=== PATIENT | male | born 1980 | race Caucasian/White ===

== ENCOUNTER 2016-10-15 19:30 | Emergency (ER) | payer OTHER ==
[2016-10-15 19:58] VITALS: RESP 16
--- NOTE | 2016-10-15 22:06 | UCPHY ---
H & P Time Seen by Provider: 10/15/16 20:41 Patient Type: New HPI/ROS: HPI Left thumb injury. 36-year-old male by private vehicle with his . He is right-hand dominant. He fell awkwardly skiing. He thinks he got his left hand caught in the wrist plan of his ski pole. He complains of isolated pain to the base of his thumb. He did not hit his head. No loss of consciousness. No neck pain. No other complaints. ROS: Constitutional: No fever, no chills. No weakness. Musculoskeletal: No back pain. No neck pain. As above. Skin: No lacerations or abrasions. Neurological: No headache. No focal weakness or altered sensation. Past medical history: No significant past medical history. Social history: Here with his . Nonsmoker. Physical Exam: General Appearance: Alert, no distress. This patient is responding to questions appropriately and in full sentences. This patient appears well- hydrated and well-nourished. Eyes: Pupils equal and round no pallor or injection. No lid edema, erythema or injection. Left hand exam: Significant for pain and swelling isolated to the dorsal radial base of the left thumb. The left hand is otherwise neurovascularly intact. The skin is intact. No lacerations or abrasions. No pain on axial compression of digits 2 through 5. Neurological: Motor sensory function is grossly intact. Cranial nerves are normal. Gait is normal. Skin: Warm and dry, no rashes. No lacerations Musculoskeletal: Neck is supple and nontender. Extremities are symmetrical. All joints range without pain or impingement except noted. Psychiatric: No agitation. No depression. Database: EKG: Imaging: Left thumb x-ray series: Significant for a fracture to the base of the 1st metacarpal. Possible intra-articular involvement. Mild displacement. Interpreted by me. Procedures: Procedure: Splint placement. A ortho glass thumb spica splint was applied left hand and thumb. After application of the splint I returned and re-examined the patient. The splint was adequately immobilizing the joint and distal to the splint the patient's circulation and sensation was intact. Emergency department course: X-rays reviewed with the patient. Diagnosis discussed. Follow-up with orthopedic hand specialist reviewed. Splint placed as above. Patient comfortable in splint. Declines any pain medication other than ibuprofen. Return to Urgent Care/emergency department precautions reviewed. All of his questions were answered. He was discharged from the urgent care in good condition with his who is driving. Differential Diagnosis: The differential diagnosis on this patient includes but is not limited to skin tears thumb/ulnar collateral ligament sprain or tear, 1st metacarpal base fracture. This represents a partial list of diagnoses considered. These considerations are based on history, physical exam, past history, reassessment and diagnostic testing. Smoking Status: Never smoked Constitutional: Initial Vital Signs Temperature (C) 36.8 C 10/15/16 19:54 Heart Rate 85 10/15/16 19:54 Respiratory Rate 16 10/15/16 19:54 Blood Pressure 154/95 H 10/15/16 19:54 O2 Sat (%) 97 10/15/16 19:54 O2 Delivery Mode Room Air Allergies/Adverse Reactions: No Known Allergies Allergy (Verified 10/15/16 19:54) Home Medications: Medication Instructions Recorded NK [No Known Home Meds] 10/15/16 Departure - Departure Disposition: Home, Routine, Self-Care Clinical Impression: Fracture of metacarpal base, first, closed Condition: Good Instructions: Thumb Fracture (ED) Additional Instructions: Read and follow provided instructions. Follow-up with orthopedic hand specialist, Dr. Preet Corrales, this week for re- evaluation and further management. Keep your left hand and thumb in the splint until you are seen on follow-up. Ibuprofen dosin mg every 6 hours with meals for the next 3 days only. Return to the emergency department for worsening pain, discoloration, swelling or other serious concerns. Referrals: Preet Corrales MD [Medical Doctor] - As per Instructions - PQRS PQRS Measurement: Not applicable.
[2016-10-15 22:20] VITALS: BP 152/89; PULSE 82; TEMP 98.4; O2SAT 96
== END 2016-10-15 22:20 | disposition home or self-care (01) ==
LOC: CED 19:30
PROC: 2W3HX1Z Immobilization of Left Thumb using Splint (ICD-10-PCS; principal; 2016-10-15)
DX: S62.502A Fracture of unspecified phalanx of left thumb, initial encounter for closed fracture (principal); V00.321A Fall from snow-skis, initial encounter; Y93.23 Activity, snow (alpine) (downhill) skiing, snowboarding, sledding, tobogganing and snow tubing
CPT/HCPCS: 73130-PO; G0463-PO